=== PATIENT | male | born 1980 | race Caucasian/White ===

== ENCOUNTER 2016-08-20 06:21 | Emergency (ER) | payer SELFPAY ==
--- NOTE | ~2016-08-20 | CR157 ---
[facility] A Service of [facility] RADIOLOGY TEXT RESULTS PATIENT: DEBBIE SALAZAR LOCATION: [facility] : 78 UNIT #: [id number] AGE: [address]: Gonzales Suarez MD SEX: M ORDER DR: [id number] [facility] [address] [place], [place] [address] [id number] E MR#: [id number] Acc #: [id number] NAME: DEBBIE SALAZAR : 1980 SEX: M STUDY DATE/TIME: 08/20/2016 5:31 UNIT: [facility] ROOM: STUDY DESCRIPTION: CR Humerus Min 2 View Rt Attending Physician: Gonzales Suarez M.D. Ordering Physician: Danielito Galdamez D.O. Primary Care Physician: No Primary Care Physician MEDICAL IMAGING REPORT This report is preliminary unless electronic signature is present EXAM Right humerus, 08/20/2016. HISTORY 35-year-old male in the ED with right arm and right shoulder pain after fall down stairs tonight prior to arrival. TECHNIQUE 2-view right humerus series. FINDINGS The humerus is negative. No fracture, dislocation or other acute osseous abnormality is visible. There is a nondisplaced fracture of the right distal clavicle. IMPRESSION 1. Negative right humerus. 2. Nondisplaced fracture of the right distal clavicle. Dictated by... Easton Hansen M.D. THIS IS AN ELECTRONICALLY VERIFIED REPORT Easton Hansen M.D. at 08/24/2016 5:01 PM JO/oscar TD: 08/20/2016 08:53 JOB #: [id number] MEDICAL IMAGING REPORT Page 1 of 1 COPY
--- NOTE | ~2016-08-20 | CR230 ---
[facility] A Service of [facility] RADIOLOGY TEXT RESULTS PATIENT: DEBBIE SALAZAR LOCATION: [facility] : 78 UNIT #: [id number] AGE: [address]: Gonzales Suarez MD SEX: M ORDER DR: [id number] [facility] [address] [place], [place] [address] [id number] E MR#: [id number] Acc #: [id number] NAME: DEBBIE SALAZAR : 1980 SEX: M STUDY DATE/TIME: 08/20/2016 5:26 UNIT: [facility] ROOM: STUDY DESCRIPTION: CR Shoulder Min 2 View Rt Attending Physician: Gonzales Suarez M.D. Ordering Physician: Danielito Galdamez D.O. Primary Care Physician: Primary Care Physician No MEDICAL IMAGING REPORT This report is preliminary unless electronic signature is present EXAM Right shoulder 08/20/2016. HISTORY 35-year-old male in the ED with right shoulder pain after injury tonight. Fell down stairs. TECHNIQUE Three-view right shoulder series. FINDINGS Acute, nondisplaced fracture across the right distal clavicle just proximal to the AC joint. Mid and proximal portions of clavicle appear normal. No visible rib fracture. The glenohumeral joint is unremarkable. IMPRESSION Right distal clavicle fracture. Dictated by... Easton Hansen M.D. THIS IS AN ELECTRONICALLY VERIFIED REPORT Easton Hansen M.D. at 08/24/2016 5:01 PM JO/juan luis TD: 08/20/2016 09:01 JOB #: [id number] MEDICAL IMAGING REPORT Page 1 of 1 COPY
[~2016-08-20 06:21] MED LIST: AUGMENTIN PO; AUGMENTIN875 M1 PO; DOXYCYCLINE HY100 M2 PO; LORTAB 7.5-3251 EACH PO; NO MEDICATIONS; PHENERGAN PO; PREDNISONE PO; VICODIN 5/500 T1 TAB PO
== END 2016-08-20 06:30 | disposition home or self-care (01) ==
LOC: CED 06:21
DX: S42.034A Nondisplaced fracture of lateral end of right clavicle, initial encounter for closed fracture (principal); F17.200 Nicotine dependence, unspecified, uncomplicated; W10.9XXA Fall (on) (from) unspecified stairs and steps, initial encounter; Y92.009 Unspecified place in unspecified non-institutional (private) residence as the place of occurrence of the external cause
CPT/HCPCS: 73030; 73060; 99284